=== PATIENT | female | born 2000 | race Caucasian/White ===

== ENCOUNTER 2023-11-22 15:13 | Emergency (ER) | payer OTHER ==
[~2023-11-22] VITALS: Ht 160 cm; Wt 73.6 kg
[2023-11-22 15:16] VITALS: BP 123/90; PULSE 87; RESP 16; TEMP 97.9
[2023-11-22 15:58] LABS: COVID AG,FIA SOURCE NASAL SWAB
[2023-11-22 16:36] LABS: SARS-COV2 (COVID) ANTIGEN,FIA Negative (Negative)
[2023-11-22 16:40] LABS: INFLUENZA TYPE A NEGATIVE FOR TYPE A (NEGATIVE); INFLUENZA TYPE B NEGATIVE FOR TYPE B (NEGATIVE)
[2023-11-22] MEDS: OXYMETAZOLINE HCL 0.05% 15 ML NASAL SPRAY NASAL ONE (17:34)
[2023-11-22] MEDS ORDERED: FLUT16SP NASAL (18:44)
[2023-11-22] MEDS ORDERED: ALBU18HF12 IH (18:45)
[2023-11-22] MEDS ORDERED: IBUP-1492 PO (18:46)
[2023-11-22] MEDS ORDERED: ACET-3385 PO (18:47)
== END 2023-11-22 19:03 | disposition home or self-care (01) ==
LOC: EMS 15:13
DX: J06.9 Acute upper respiratory infection, unspecified (principal); F17.210 Nicotine dependence, cigarettes, uncomplicated; Z88.0 Allergy status to penicillin; Z88.8 Allergy status to other drugs, medicaments and biological substances; Z20.822 Contact with and (suspected) exposure to COVID-19
CPT/HCPCS: 84703; 87804; 99283